=== PATIENT | male | born 1970 | race Caucasian/White ===

== ENCOUNTER 2020-05-27 15:22 | Emergency (ER) | payer SELFPAY ==
--- NOTE | 2020-05-27 15:58 | RAD ---
EXAM: 3 views of the right hand COMPARISON: None HISTORY: Hand pain after injury FINDINGS: 3 views of the hand shows a minimally displaced fracture of the base of the fifth metacarpa l. No degenerative changes are seen. Mild soft tissue swelling is present. IMPRESSION: Fifth metacarpal fracture
--- NOTE | 2020-05-27 15:58 | RAD ---
EXAM: 3 views of the left foot HISTORY: Foot pain after injury COMPARISON: None FINDINGS: 3 views of the left foot shows no evidence of acute fracture or dislocation. No soft tissue swelling is seen. No degenerative changes are present. IMPRESSION: No evidence of acute osseous abnormality.
[2020-05-27] MEDS ORDERED: HYDROcodone/Acetaminophen 5/325 mg Tablet ONE (16:18)
== END 2020-05-27 16:43 | disposition home or self-care (01) ==
LOC: MADERS 15:22
DX: S62.316A Displaced fracture of base of fifth metacarpal bone, right hand, initial encounter for closed fracture (principal); S93.602A Unspecified sprain of left foot, initial encounter; F17.210 Nicotine dependence, cigarettes, uncomplicated; W17.2XXA Fall into hole, initial encounter
CPT/HCPCS: 29125

== ENCOUNTER 2020-11-07 20:15 | Emergency (ER) | payer SELFPAY ==
[2020-11-07 21:28] LABS: #Basophils 0.1 thou/uL (0.0-0.2); #Eosinphils 0.3 thou/uL (0.0-0.7); #Lymphocytes 3.2 thou/uL (1.20-3.40); #Monocytes 0.5 thou/uL (0.11-0.59); #Neutrophils 6.2 thou/uL (1.40-6.50); %Basophils 1.3 % (0.0-1.0); %Eosinophils 2.8 % (0.0-10.0); %Monocytes 4.7 % (0.0-10.0); %Neutrophils 60.2 % (42.0-75.0); Hemoglobin 16.8 g/dL (14.0-18.0); Mean Corpuscular HGB CONC 33.2 g/dL (32.0-36.0); Mean Corpuscular Hemoglobin 30.5 pg (27.0-31.0); Mean Corpuscular Volume 91.7 fL (78.0-98.0); Platelet Count 212 thou/uL (130-400); Red Blood Cell (RBC) Count 5.51 mill/uL (4.70-6.10); White Blood Cell (WBC) Count 10.4 thou/uL (4.8-10.8)
[2020-11-07 21:41] LABS: ALT (SGPT) 24 U/L (8-55); AST (SGOT) 23 U/L (5-34); Albumin 4.3 g/dL (3.5-5.0); Alkaline Phosphatase 82 U/L (40-110); Anion Gap 12 mmol/L (10-20); BUN (Urea Nitrogen) 9 mg/dL (8.9-20.6); Bilirubin, Total 0.3 mg/dL (0.2-1.2); Calc. Creatinine Clearance 0 mL/min (70-130); Calcium 9.6 mg/dL (7.8-10.44); Carbon Dioxide 26 mmol/L (22-29); Chloride 108 mmol/L (98-107); Glucose 93 mg/dL (70-105); Potassium 4.4 mmol/L (3.5-5.1); Protein, Total 7.3 g/dL (6.0-8.3); Sodium 142 mmol/L (136-145)
[2020-11-07] MEDS ORDERED: Aspirin Chewable 81 MG TAB ONE (22:07)
== END 2020-11-07 22:13 | disposition home or self-care (01) ==
LOC: MADERS 20:15
DX: R07.89 Other chest pain (principal); F17.210 Nicotine dependence, cigarettes, uncomplicated
CPT/HCPCS: 71045; 80053; 84484; 85025; 93005

== ENCOUNTER 2021-06-17 20:52 | Emergency (ER) | payer SELFPAY ==
[2021-06-18 22:05] LABS: SARS-CoV-2 PCR by NAA Not Detected (NotDetected)
== END 2021-06-17 22:04 | disposition home or self-care (01) ==
LOC: MADERS 20:52
DX: K02.9 Dental caries, unspecified (principal); K04.7 Periapical abscess without sinus; F17.210 Nicotine dependence, cigarettes, uncomplicated; Z20.822 Contact with and (suspected) exposure to COVID-19
CPT/HCPCS: 99283; U0003; U0005

== ENCOUNTER 2023-02-16 18:19 | Emergency (ER) | payer SELFPAY ==
[2023-02-16] MEDS ORDERED: Ampicillin/Sulbactam 3 GM VIAL ONE (18:44)
[2023-02-16] MEDS ORDERED: Morphine 4 MG/ML VIAL ONE (18:44)
[2023-02-16] MEDS ORDERED: Sodium Chloride 0.9% 1,000 ML ONE (18:45)
[2023-02-16 19:19] LABS: ALT (SGPT) 73 U/L (8-55); AST (SGOT) 100 U/L (5-34); Albumin 4.1 g/dL (3.5-5.0); Alkaline Phosphatase 103 U/L (40-110); Anion Gap 13 mmol/L (10-20); BUN (Urea Nitrogen) 9 mg/dL (8.9-20.6); Bilirubin, Total 0.4 mg/dL (0.2-1.2); Calc. Creatinine Clearance 0 mL/min (70-130); Calcium 9.5 mg/dL (7.8-10.44); Carbon Dioxide 23 mmol/L (22-29); Chloride 106 mmol/L (98-107); Estimated GFR 107; Globulin 3.3 g/dL (2.4-3.5); Glucose 107 mg/dL (70-105); Potassium 3.9 mmol/L (3.5-5.1); Protein, Total 7.4 g/dL (6.0-8.3); Sodium 138 mmol/L (136-145)
[2023-02-16 19:24] LABS: Hemoglobin 16.5 g/dL (14.0-18.0); Lymphocytes 9 % (21-51); MDiff Complete? YES; Mean Corpuscular HGB CONC 33.2 g/dL (32.0-36.0); Mean Corpuscular Hemoglobin 31.3 pg (27.0-31.0); Mean Corpuscular Volume 94.2 fl (78.0-98.0); Mean Platelet Volume 10.1 fL (7.4-10.4); Monocytes 5 % (0-10); Neutrophil 72 % (42-75); Platelet Adequacy Comment Appears Adequate; Platelet Count 205 10x3/uL (130-400); RBC Distribution Width 13.2 % (11.5-14.5); Reactive Lymphocytes 14 % (0-10); Red Blood Cell (RBC) Count 5.25 mill/uL (4.70-6.10); White Blood Cell (WBC) Count 9.4 10x3/uL (4.8-10.8)
== END 2023-02-16 20:01 | disposition home or self-care (01) ==
LOC: MADERS 18:19
DX: K04.7 Periapical abscess without sinus (principal); I88.9 Nonspecific lymphadenitis, unspecified; F17.210 Nicotine dependence, cigarettes, uncomplicated
CPT/HCPCS: 80053; 83605; 85025; 96374; 96375; J0295; J2270; J7050